=== PATIENT | female | born 1955 | race Caucasian/White ===

== ENCOUNTER 2019-04-10 16:17 | Emergency (ER) | payer MEDICARE ==
--- NOTE | 2019-04-10 16:49 | Emergency Department Record ---
History of Present Illness - General Chief Complaint: Knee injury Stated Complaint: FALL/BOTH KNEE PAIN Time Seen by Provider: 04/10/19 16:25 Mode of Arrival: Ambulatory - History of Present Illness Initial Comments: patient fell last night at 11pm and both knees are painful and the left is worse with a joint effusion Onset/Timin -: Hour(s) Type of Injury: Blunt Place: Home Severity: Moderate Severity scale (1-10): 8 Improves With: Immobilization, Rest Worsens With: Movement, Weight bearing Context: Fall Associated Symptoms: Able to partially bear weight - Related Data Allergies Allergy/AdvReac Type Severity Reaction Status Date / Time lisinopril Allergy Severe SWELLING Verified 04/10/19 16:24 OF THE TONGUE Travel Screening - Travel/Exposure Within Last 30 Days Have you traveled within the last 30 days?: No - Travel/Exposure Within Last Year Have you traveled outside the [place] in the last year?: No - Additonal Travel Details Have you been exposed to anyone with a communicable illness?: No - Travel Symptoms Symptom Screening: None Review of Systems Reviewed: No additional complaints except as noted below Constitutional: Reports: As per HPI. Denies: Chills, Fever, Malaise, Night sweats, Weakness, Weight change Eyes: Reports: As per HPI. Denies: Eye discharge, Eye pain, Photophobia, Vision change ENT: Reports: As per HPI. Denies: Congestion, Dental pain, Ear pain, Epistaxis, Hearing loss, Throat pain Respiratory: Reports: As per HPI. Denies: Cough, Dyspnea, Hemoptysis, Stridor, Wheezes Cardiovascular: Reports: As per HPI. Denies: Arrhythmia, Chest pain, Dyspnea on exertion, Edema, Murmurs, Orthopnea, Palpitations, Paroxysmal nocturnal dyspnea, Rheumatic Fever, Syncope Endocrine: Reports: As per HPI. Denies: Fatigue, Heat or cold intolerance, Polydipsia, Polyuria Gastrointestinal: Reports: As per HPI. Denies: Abdominal pain, Constipation, Diarrhea, Hematemesis, Hematochezia, Melena, Nausea, Vomiting Genitourinary: Reports: As per HPI. Denies: Abnormal menses, Discharge, Dyspareunia, Dysuria, Frequency, Hematuria, Incontinence, Retention, Urgency Musculoskeletal: Reports: As per HPI, Arthralgia, Joint swelling. Denies: Back pain, Gout, Myalgia, Neck pain Skin: Reports: As per HPI. Denies: Bruising, Change in color, Change in hair/nails, Lesions, Pruritus, Rash Neurological: Reports: As per HPI. Denies: Abnormal gait, Confusion, Headache, Numbness, Paresthesias, Seizure, Tingling, Tremors, Vertigo, Weakness Psychiatric: Reports: As per HPI. Denies: Anxiety, Auditory hallucinations, Depression, Homicidal thoughts, Suicidal thoughts, Visual hallucinations Hematological/Lymphatic: Reports: As per HPI. Denies: Anemia, Blood Clots, Easy bleeding, Easy bruising, Swollen glands Past Medical History - SOCIAL HISTORY Smoking Status: Current every day smoker Alcohol Use: Occasional Alcohol Use Comment: 2 drinks an evening Drug Use: None - RESPIRATORY Hx Respiratory Disorders: No - CARDIOVASCULAR Hx Cardio Disorders: Yes Hx Coronary Artery Disease: Yes Comment:: high cholesterol - NEURO Hx Neuro Disorders: No - GI Hx GI Disorders: Yes Hx Reflux: Yes - Hx Genitourinary Disorders: No - ENDOCRINE Hx Endocrine Disorders: Yes Hx Diabetes: Yes - MUSCULOSKELETAL Hx Musculoskeletal Disorders: Yes Hx Arthritis: Yes - PSYCH Hx Psych Problems: Yes Hx Anxiety: Yes Hx Depression: Yes - HEMATOLOGY/ONCOLOGY Hx Hematology/Oncology Disorders: No Family Medical History Any Significant Family History?: No Physical Exam - General General Appearance: Alert, Oriented x3, Cooperative, No acute distress - Head Head exam: Normal inspection - Eye Eye exam: Normal appearance, PERRL Pupils: Normal accommodation - ENT ENT exam: Normal exam, Mucous membranes moist, Normal external ear exam, Normal orophraynx, TM's normal bilaterally Ear exam: Normal external inspection. negative: External canal tenderness Nasal Exam: Normal inspection. negative: Discharge, Sinus tenderness Mouth exam: Normal external inspection, Tongue normal Teeth exam: Normal inspection. negative: Dental caries Throat exam: Normal inspection. negative: Tonsillar erythema, Tonsillar exudate - Neck Neck exam: Normal inspection, Full ROM. negative: Tenderness - Respiratory Respiratory exam: Normal lung sounds bilaterally. negative: Respiratory distress - Cardiovascular Cardiovascular Exam: Regular rate, Normal rhythm, Normal heart sounds - GI/Abdominal GI/Abdominal exam: Soft, Normal bowel sounds. negative: Tenderness - Rectal Rectal exam: Deferred - exam: Deferred - Extremities Extremities exam: Normal inspection, Full ROM, Normal capillary refill, Tenderness (both knees) - Back Back exam: Reports: Normal inspection, Full ROM. Denies: Muscle spasm, Rash noted, Tenderness - Neurological Neurological exam: Alert, Normal gait, Oriented X3, Reflexes normal - Psychiatric Psychiatric exam: Normal affect, Normal mood - Skin Skin exam: Dry, Intact, Normal color, Warm Course Vital Signs 04/10/19 16:29 Temperature 99 F Pulse Rate 92 H Respiratory 20 Rate Blood Pressure 142/69 Pulse Ox 94 L Medical Decision Making - Data Complexity MDM Data: X-Ray Ordered and/or Reviewed (knee no fractures seen) Disposition Clinical Impression: Contusion of knee Qualifiers: Encounter type: initial encounter Laterality: right Qualified Code(s): S80.01XA - Contusion of right knee, initial encounter Sprain of left knee Qualifiers: Encounter type: initial encounter Involved ligament of knee: unspecified ligament Qualified Code(s): S83.92XA - Sprain of unspecified site of left knee, initial encounter Disposition: Home, Self-Care Condition: (1) Good Instructions: Knee Sprain (ED), Contusion in Adults (ED), Swollen Knee Joint (ED) Additional Instructions: follow up with family Dr in one week Forms: Patient Portal Access Quality - Quality Measures Quality Measures: N/A - Blood Pressure Screening Does Patient Have Any of the Following: No Blood Pressure Classification: Hypertensive Reading Systolic Measurement: 142 Diastolic Measurement: 69 Screening for High Blood Pressure: < Pre-Hypertensive BP, F/U Documented > [[id number]] Pre-Hypertensive Follow-up Interventions: Referral to alternative/primary care provider.
--- NOTE | 2019-04-10 17:18 | RADIOLOGY REPORT ---
EXAMINATION: Left Knee Complete, Four or More Views EXAM DATE: 04/10/2019 5:13 PM TECHNIQUE: Frontal, lateral, oblique and sunrise view INDICATION: Fall, left greater than right knee pain COMPARISON: None ENCOUNTER: Initial FINDINGS: Mild medial compartment left knee joint space narrowing is noted. Moderate atherosclerotic calcificat ion is seen throughout the exam. Mild lateral patellofemoral compartment narrowing is noted. No joint effusion is seen. Mild soft tissue edema along the medial knee and suprapatellar region is noted. IMPRESSION: 1. No acute bony process, with mild medial and patellofemoral compartment degenerative joint space na rrowing. There is soft tissue swelling in the suprapatellar area and medial knee that may be posttrau matic. Dictated by: Kit Harris MD on 04/10/2019 5:15 PM. .
--- NOTE | 2019-04-10 17:19 | RADIOLOGY REPORT ---
EXAMINATION: Right Knee Complete, Four or More Views EXAM DATE: 04/10/2019 5:13 PM TECHNIQUE: Frontal, lateral, oblique and sunrise view INDICATION: Fall, left greater than right knee pain COMPARISON: None ENCOUNTER: Initial FINDINGS: There is severe lateral patellofemoral joint space narrowing and spurring, with mild medial compartme nt joint space narrowing. No significant joint effusion is seen. No acute or destructive bony abnorma lity is seen. Moderate atherosclerotic calcification is noted. No significant soft tissue swelling is seen. IMPRESSION: 1. No acute process, with severe lateral patellofemoral and mild medial compartment joint space narro wing. Dictated by: Kit Harris MD on 04/10/2019 5:17 PM. .
== END 2019-04-10 17:53 | disposition home or self-care (01) ==
LOC: ER 16:17
DX: S80.01XA Contusion of right knee, initial encounter (principal); S83.92XA Sprain of unspecified site of left knee, initial encounter; M25.561 Pain in right knee; F17.210 Nicotine dependence, cigarettes, uncomplicated; W19.XXXA Unspecified fall, initial encounter; Y92.003 Bedroom of unspecified non-institutional (private) residence as the place of occurrence of the external cause
CPT/HCPCS: 99283